=== PATIENT | female | born 1995 | race Caucasian/White ===

== ENCOUNTER 2017-11-14 09:13 | Emergency (ER) | payer MEDICAID, OTHER ==
[2017-11-14] MEDS ORDERED: Albuterol 0.083% Inhal Sol (2.5 mg/3 mL) UD IH STA (10:30)
[2017-11-14] MEDS ORDERED: Albuterol-Ipratrop 3 mg / 0.5 (3 ml) UD ONE (11:10)
--- NOTE | 2017-11-14 11:11 | RAD ---
Date of service: 11/14/2017 HISTORY: sob COMPARISON: Chest radiograph dated 08/10/2015. TECHNIQUE: Chest PA and lateral FINDINGS: LUNGS: No active pulmonary disease. PLEURA: No significant pleural effusion identified. No pneumothorax apparent. CARDIOVASCULAR: Normal. OSSEOUS STRUCTURES: No significant abnormalities. VISUALIZED UPPER ABDOMEN: Normal. OTHER FINDINGS: None. IMPRESSION: No active disease.
[2017-11-14] MEDS ORDERED: Albuterol 0.083% Inhal Sol (2.5 mg/3 mL) UD ONE (11:12)
[2017-11-14 11:16] LABS: BASO % 0.4 % (0.0-2.0); EOS # 0.1 K/uL (0.0-0.7); EOS % 2.8 % (0.0-4.0); HEMOGLOBIN 10.7 g/dL (11.0-16.0); LYMPH # 1.2 K/uL (1.0-4.3); LYMPH % 27.8 % (20.0-40.0); MEAN CELL VOLUME 77.2 fL (81.0-99.0); MEAN CORPUSCULAR HEMOGLOBIN 26.8 pg (27.0-31.0); MEAN CORPUSCULAR HGB CONC 34.7 g/dL (33.0-37.0); MEAN PLATELET VOLUME 7.8 fL (7.2-11.7); MONO # 0.3 K/uL (0.0-0.8); MONO % 6.5 % (0.0-10.0); NEUT # 2.6 K/uL (1.8-7.0); NEUT % 62.5 % (50.0-75.0); NRBC % 0.2 % (0.0-2.0); RBC 3.99 Mil/uL (3.80-5.20); RED CELL DISTRIBUTION WIDTH 13.4 % (11.5-14.5); WHITE BLOOD COUNT 4.2 K/uL (4.8-10.8)
[2017-11-14 11:24] LABS: ALB/GLOB RATIO 0.9 (1.0-2.1); ALBUMIN 3.8 g/dL (3.5-5.0); ALT/SGPT 33 U/L (9-52); AST/SGOT 35 U/L (14-36); BLOOD UREA NITROGEN 13 mg/dL (7-17); CALCIUM 8.3 mg/dl (8.6-10.4); GFR AFRICAN-AMERICAN > 60; GFR NON-AFRICAN AMERICAN > 60
--- NOTE | 2017-11-14 12:08 | C.PDOC ---
History Of Present Illness 22-year-old female, h/o pulmonary fibrosis and scleroderma presents to the emergency department with complaints of shortness of breath, that started two days ago. Patient states she was seen at an urgent care, where they did an XR and told her to come to ED for further evaluation. She notes pain with deep inspiration, on left side. Denies fever, nausea/vomiting, chest pain, back pain , difficulty swallowing, coughing, or rash. Time Seen by Provider: 11/14/17 09:41 Chief Complaint (Nursing): Shortness Of Breath History Per: Patient History/Exam Limitations: no limitations Onset/Duration Of Symptoms: Days Current Symptoms Are (Timing): Still Present Past Medical History Reviewed: Historical Data, Nursing Documentation, Vital Signs Vital Signs: Last Vital Signs Temp 98.8 F 11/14/17 15:23 Pulse 75 11/14/17 15:23 Resp 18 11/14/17 15:23 BP 115/82 11/14/17 15:23 Pulse Ox 100 11/14/17 18:15 - Medical History PMH: Rheumatoid Arthritis Family History: States: No Known Family Hx - Social History Hx Alcohol Use: No Hx Substance Use: No - Immunization History Hx Tetanus Toxoid Vaccination: Yes Hx Influenza Vaccination: No Hx Pneumococcal Vaccination: No Review Of Systems Constitutional: Negative for: Fever, Chills Cardiovascular: Negative for: Chest Pain, Palpitations, Edema Respiratory: Positive for: Shortness of Breath. Negative for: Hemoptysis Gastrointestinal: Negative for: Nausea, Vomiting, Abdominal Pain Musculoskeletal: Negative for: Back Pain Neurological: Negative for: Weakness, Headache, Dizziness Physical Exam - Physical Exam Appears: Non-toxic, No Acute Distress Skin: Normal Color, Warm, Dry, No Rash Head: Atraumatic, Normacephalic Eye(s): bilateral: Normal Inspection, PERRL, EOMI Ear(s): Bilateral: Normal Nose: Normal Oral Mucosa: Moist Lips: Normal Appearing Throat: Normal, No Erythema, No Exudate Neck: Normal ROM, Supple Chest: Symmetrical, Tenderness (Tenderness digitally reproducible to the left lateral chest wall) Cardiovascular: Rhythm Regular Respiratory: Normal Breath Sounds, No Accessory Muscle Use, Other (pt is speaking in full sentences, laying down, eating without any evidence of sob) Gastrointestinal/Abdominal: Soft, No Tenderness Extremity: Normal ROM, No Deformity, No Swelling Neurological/Psych: Oriented x3, Normal Speech ED Course And Treatment - Laboratory Results Result Diagrams: 11/14/17 11:07 11/14/17 11:07 ECG: Interpreted By Me, Viewed By Me ECG Rhythm: Sinus Rhythm ECG Interpretation: No Acute Changes Rate From EC O2 Sat by Pulse Oximetry: 100 (RA) Pulse Ox Interpretation: Normal - CT Scan/US CT CHEST Other Rad Studies (CT/US): Read By Radiologist, Radiology Report Reviewed CT/US Interpretation: Accession No. : [id number]. Patient Name / ID : PRINCE SOLANO / [id number]. Exam Date : 11/14/2017 12:38:13 ( Approved ). Study Comment : Sex / Age : F / 22Y. Creator : Yamile Alcocer. Dictator : Mila Hodge MD. Healthcare Educator : Photocopying Machine Operator : Mila Hodge MD. Approver2 : Report Date : 11/14/2017 13:51:17. My Comment : . Date of service: 11/14/2017. PROCEDURE: CT Chest with contrast (Pulmonary Angiogram) . HISTORY: SOB. COMPARISON: None available. TECHNIQUE: Axial computed tomography images were obtained of the chest in the pulmonary arterial phase of enhancement. Coronal and sagittal reformatted images were created and reviewed. Intravenous contrast dose: 100 mL Visipaque 320. Radiation dose: Total exam DLP = 441.87 mGy-cm. This CT exam was performed using one or more of the following dose reduction techniques: Automated exposure control, adjustment of the mA and/or kV according to patient size, and/or use of iterative reconstruction technique. FINDINGS: PULMONARY ARTERIES: Unremarkable. No pulmonary embolism. AORTA: No acute findings. No thoracic aortic aneurysm. LUNGS: Cystic changes are noted at the peripheral bilateral upper lobes and in the lung bases right more than left of uncertain etiology. No evidence of significant associated bronchiectasis to suggest lung fibrosis. Small patchy ground-glass opacities are also noted. PLEURAL SPACES: Unremarkable. No effusion or pneuomothorax. HEART: Unremarkable. No cardiomegaly. No significant pericardial effusion. LYMPH NODES: Mild mediastinal and bilateral axillary lymphadenopathy are noted. BONES, CHEST WALL: Unremarkable. No fracture or destructive lesion. OTHER FINDINGS: There is moderate dietitian of the mid and distal esophagus noted. IMPRESSION: No evidence of pulmonary thromboembolism. Foci of cystic changes noted in the lungs bilaterally more prominent at the peripheral right upper lobe. Small foci of ground-glass opacities. Moderately dilated mid and distal esophagus. Please correlate clinically for scleroderma. The above-mentioned lung changes may represent usual interstitial pneumonitis or nonspecific interstitial pneumonitis which can be the pulmonary manifestation of scleroderma. Mild mediastinal and bilateral axillary lymphadenopathy. Progress Note: CT Chest, EKG, Bloodwork, chest XR and peak flow ordered. Pt treated with Albuterol and Toradol. On re-evaluation, pt notes she feels better. Patient is resting comfortably with no wheezing, chest pain, or retractions. Oxygen saturation WNL. Pt feels comfortable going home and with follow up with her PMD in 1-2 days. Instructed to return to ER if symptoms persist or worsen. Case discussed and work up evaluated by Dr Antoine, agreed upon plan and discharge. Disposition - Disposition Referrals: Gregorio Toure MD [Staff Provider] - Disposition: HOME/ ROUTINE Disposition Time: 15:00 Condition: STABLE Additional Instructions: Follow up with your doctor and blood splatter analyst in 1-2 days. Return to ER if symptoms persist or worsen. Prescriptions: Prednisone 10 mg PO DAILY #1 tab.[id number] Instructions: Systemic Scleroderma Forms: [facility] (Danish) - Clinical Impression Clinical Impression: Scleroderma - Scribe Statement The provider has reviewed the documentation as recorded by the Scribe (Leon Hayden) All medical record entries made by the Scribe were at my direction and personally dictated by me. I have reviewed the chart and agree that the record accurately reflects my personal performance of the history, physical exam, medical decision making, and the department course for this patient. I have also personally directed, reviewed, and agree with the discharge instructions and disposition.
[2017-11-14] MEDS ORDERED: Iodixanol 320 MG/ML 100 ML BOTTLE IV ONE (12:33)
--- NOTE | 2017-11-14 14:17 | CT ---
Date of service: 11/14/2017 PROCEDURE: CT Chest with contrast (Pulmonary Angiogram) HISTORY: SOB COMPARISON: None available. TECHNIQUE: Axial computed tomography images were obtained of the chest in the pulmonary arterial phase of enhancement. Coronal and sagittal reformatted images were created and reviewed. Intravenous contrast dose: 100 mL Visipaque 320 Radiation dose: Total exam DLP = 441.87 mGy-cm. This CT exam was performed using one or more of the following dose reduction techniques: Automated exposure control, adjustment of the mA and/or kV according to patient size, and/or use of iterative reconstruction technique. FINDINGS: PULMONARY ARTERIES: Unremarkable. No pulmonary embolism. AORTA: No acute findings. No thoracic aortic aneurysm. LUNGS: Cystic changes are noted at the peripheral bilateral upper lobes and in the lung bases right more than left of uncertain etiology. No evidence of significant associated bronchiectasis to suggest lung fibrosis. Small patchy ground-glass opacities are also noted. PLEURAL SPACES: Unremarkable. No effusion or pneuomothorax. HEART: Unremarkable. No cardiomegaly. No significant pericardial effusion. LYMPH NODES: Mild mediastinal and bilateral axillary lymphadenopathy are noted. BONES, CHEST WALL: Unremarkable. No fracture or destructive lesion OTHER FINDINGS: There is moderate dietitian of the mid and distal esophagus noted. IMPRESSION: No evidence of pulmonary thromboembolism. Foci of cystic changes noted in the lungs bilaterally more prominent at the peripheral right upper lobe. Small foci of ground-glass opacities. Moderately dilated mid and distal esophagus. Please correlate clinically for scleroderma. The above-mentioned lung changes may represent usual interstitial pneumonitis or nonspecific interstitial pneumonitis which can be the pulmonary manifestation of scleroderma. Mild mediastinal and bilateral axillary lymphadenopathy.
[2017-11-14 15:25] VITALS: BP 115/82; PULSE 75; RESP 18; TEMP 98.8
[2017-11-14 15:44] VITALS: O2SAT 100
--- NOTE | 2017-11-16 12:32 | CARD ---
APPROVED REPORT Date of service: 11/14/2017 EKG Measurement Heart [id number] [id number] <Conclusion> Normal sinus rhythm Normal ECG
== END 2017-11-14 15:25 | disposition home or self-care (01) ==
LOC: C.ER 09:13
DX: M34.9 Systemic sclerosis, unspecified (principal); J84.10 Pulmonary fibrosis, unspecified; M06.9 Rheumatoid arthritis, unspecified
CPT/HCPCS: 71046; 71275; 80053; 85025; 85378; 93005; 94640; 96374; 99285; J1885; Q9967

== ENCOUNTER 2018-01-21 14:51 | Emergency (ER) | payer OTHER ==
[2018-01-21 15:02] VITALS: TEMP 98.4
--- NOTE | 2018-01-21 15:44 | C.PDOC ---
History Of Present Illness 22 y/o F c PMHx RA, Lupus p/w chronic pain. Patient states she has pain in her fingers, knees, back that is the same as her chronic pain from RA. She states she saw Dr. Toure 3 days ago and started on Meloxicam but still with pain and came to ED for treatment. Denies fever, chills, chest pain, dyspnea, vomiting. Time Seen by Provider: 01/21/18 15:10 Chief Complaint (Nursing): Pain, Chronic Past Medical History Vital Signs: Last Vital Signs Temp 98.4 F 01/21/18 14:58 Pulse 106 H 01/21/18 14:58 Resp 19 01/21/18 14:58 BP 126/85 01/21/18 14:58 Pulse Ox 98 01/21/18 15:44 - Medical History PMH: Rheumatoid Arthritis Family History: States: Unknown Family Hx - Social History Hx Alcohol Use: No Hx Substance Use: No - Immunization History Hx Tetanus Toxoid Vaccination: Yes Hx Influenza Vaccination: No Hx Pneumococcal Vaccination: No Review Of Systems Except As Marked, All Systems Reviewed And Found Negative. Constitutional: Negative for: Fever Cardiovascular: Negative for: Chest Pain Physical Exam - Physical Exam Additional Physical Exam Comments: Gen: NAD Head: NC Eyes: No icterus ENT: MMM Neck: Supple Chest: No tenderness CV: Regular rate Lungs: CTA b/l Abd: Soft, NT Back: No CVA tenderness Extremities: No tenderness Skin: No rash Neuro: Alert ED Course And Treatment O2 Sat by Pulse Oximetry: 98 Medical Decision Making Medical Decision Making: Morphine IV administered. Instructed to f/u with Rheum for further management for chronic condition. Disposition - Disposition Referrals: Fransisco Bruner MD [Staff Provider] - Ajay Pittman [Staff Provider] - [facility] [Outside] Disposition: HOME/ ROUTINE Disposition Time: 15:42 Condition: STABLE Instructions: Rheumatoid Arthritis Forms: [facility] ([place]) - Clinical Impression Clinical Impression: Chronic pain
[2018-01-21] MEDS ORDERED: Morphine 4 MG/ML VIAL IV ONE (15:48)
[2018-01-21] MEDS ORDERED: Morphine 4 MG/ML VIAL ONE (15:52)
[2018-01-21 16:08] VITALS: BP 115/62; PULSE 104; RESP 20; O2SAT 97
== END 2018-01-21 16:07 | disposition home or self-care (01) ==
LOC: C.ER 14:51
DX: G89.29 Other chronic pain (principal)
CPT/HCPCS: 96374; 99284; J2270

== ENCOUNTER 2018-01-26 20:35 | Emergency (ER) | payer OTHER ==
[2018-01-26 20:52] VITALS: O2SAT 100
--- NOTE | 2018-01-26 23:18 | C.PDOC ---
History Of Present Illness 22 year old female with a history of lupus, rheumatoid arthritis, and pulmonary fibrosis presents to the emergency department with complaints of hand, foot, and back pain. Patient was taking 20mg Prednisone daily but has been off of it for the last year. patient was seen by Dr. Toure on 01-18-18 for reoccurring chronic pain. Patient was started on Meloxicam, but claims that it is not helping. Patient did not take Meloxicam today, rather she has been taking Motrin 400mg twice a day. Time Seen by Provider: 01/26/18 22:29 Chief Complaint (Nursing): Pain, Chronic History Per: Patient History/Exam Limitations: no limitations Onset/Duration Of Symptoms: Other (chronic) Current Symptoms Are (Timing): Still Present Past Medical History Reviewed: Historical Data, Nursing Documentation, Vital Signs Vital Signs: Last Vital Signs Temp 98.4 F 01/26/18 23:34 Pulse 100 H 01/26/18 23:34 Resp 24 01/26/18 23:34 BP 120/77 01/26/18 23:34 Pulse Ox 100 01/26/18 23:34 - Medical History PMH: Rheumatoid Arthritis Other PMH: Lupus, Pulmonary fibrosis Surgical History: No Surg Hx Family History: States: No Known Family Hx - Social History Hx Alcohol Use: No Hx Substance Use: No - Immunization History Hx Tetanus Toxoid Vaccination: Yes Hx Influenza Vaccination: No Hx Pneumococcal Vaccination: No Review Of Systems Except As Marked, All Systems Reviewed And Found Negative. Constitutional: Negative for: Fever, Chills Musculoskeletal: Positive for: Back Pain, Hand Pain, Foot Pain Neurological: Negative for: Weakness, Numbness Physical Exam - Physical Exam Appears: Non-toxic, No Acute Distress, Other (initially asleep) Skin: Warm, Dry Head: Atraumatic, Normacephalic Eye(s): bilateral: Normal Inspection Nose: Normal Oral Mucosa: Moist Neck: Trachea Midline, Supple, Other (questionable buffalo hump, supraclavicular fat-pads) Chest: Symmetrical, No Tenderness Cardiovascular: Rhythm Regular, No Murmur Respiratory: No Rales, No Rhonchi, No Wheezing Gastrointestinal/Abdominal: Soft, No Tenderness, Other (central obesity) Extremity: Swelling (mild edema to the bilateral hands and feet), No Other ( sausage-like digits, pain at MCP, pain in distal phalanges) Neurological/Psych: Oriented x3, Normal Speech, Normal Cognition ED Course And Treatment O2 Sat by Pulse Oximetry: 100 (RA) Pulse Ox Interpretation: Normal Medical Decision Making Medical Decision Making: since age 15 RA, pulm fibrosis, Lupus @ [facility] with tx w Plaquenil, Prednisone, and Cyclophosphamide Was on Prednisone 20 mg daily for "years" up until about 1 yr ago and had been symptom free. Moved to [place] and symptoms much less and off prednisone. and unclear regimen, but based on Motrin 400 mg BID to QID PRN Moved back to [place] (living in [place]) and visiting local Urgent Care clinics and continues Motrin PRN. Seen by Dr. Toure (local Rheum 01/18 started on Meloxicam with moderate compliance and persistent Motrin 400 mg PO BID) but syptoms worstening. Symptoms worse @ night. Usually takes her Meloxicam @ night as symptoms worse @ night. Pt has not tried local Rheumatology Clinics (ie, [facility] [place], nor back to [facility]) as claims the Rhum @ [facility] does not accept her insurance and was formerly seen by Pediatrics. Unclear which + autoimmune tests she's had. Brings no files. Prefers to be re-started on prednisone and Pepcid and has f/u @ Dr. Toure and could not make sooner f/u appt. ? 3 simultaneous autoimmune diseases lost to f/u, no RA typical findings of hands/feet, with intermittent asymptomatic periods, and had a successful 4 yrs ago without anticoagulants. Plan: EKG Pepcid 20mg PO Ultram 50mg PO Prednisone 40mg PO Disposition Doctor Will See Patient In The: Office Counseled Patient/Family Regarding: Studies Performed, Diagnosis - Disposition Referrals: [facility] [Outside] [employer] [facility] [Outside] [facility] [Outside] [place] [facility] [Outside] Gregorio Toure MD [Staff Provider] - Disposition: HOME/ ROUTINE Disposition Time: 23:18 Condition: GOOD Additional Instructions: continue prednisone 20 mg daily until f/u with Dr. Toure or local Rheumatology Clinic ([facility] [place]) Pepcid 20 mg twice a day to avoid stomach irritation (9AM and 9PM) STOP Meloxicam if taking prednisone Prescriptions: Prednisone [Deltasone] 20 mg PO DAILY #30 tablet Instructions: Rheumatoid Arthritis, Chronic Pain (DC) Forms: [employer] ([place]) - Clinical Impression Clinical Impression: Chronic pain, Autoimmune disease - Scribe Statement The provider has reviewed the documentation as recorded by the Scribe (Jeferson Berumen) Provider Attestation: All medical record entries made by the Scribe were at my direction and personally dictated by me. I have reviewed the chart and agree that the record accurately reflects my personal performance of the history, physical exam, medical decision making, and the department course for this patient. I have also personally directed, reviewed, and agree with the discharge instructions and disposition.
[2018-01-26 23:35] VITALS: BP 120/77; PULSE 100; RESP 24; TEMP 98.4
--- NOTE | 2018-01-29 18:53 | CARD ---
APPROVED REPORT Date of service: 01/26/2018 EKG Measurement Heart [id number] [id number] <Conclusion> Normal sinus rhythm Normal ECG
== END 2018-01-26 23:36 | disposition home or self-care (01) ==
LOC: C.ER 20:35
DX: G89.29 Other chronic pain (principal); M06.9 Rheumatoid arthritis, unspecified